=== PATIENT | female | born 1955 | race Caucasian/White ===

== ENCOUNTER 2017-04-22 21:30 | Emergency (ER) | payer BC, MEDICARE, OTHER ==
[~2017-04-22] VITALS: Ht 165.1 cm; Wt 75.1 kg
[2017-04-22 23:13] VITALS: BP 114/67
[2017-04-23] MEDS ORDERED: ENOXAPARIN 40 MG/0.4 ML ONE (00:22)
[2017-04-23] MEDS ORDERED: ENOXAPARIN 40 MG/0.4 ML SQ SCH (00:30)
== END 2017-04-23 00:30 | disposition home or self-care (01) ==
LOC: ED 23:59
DX: I80.9 Phlebitis and thrombophlebitis of unspecified site (principal); Z88.5 Allergy status to narcotic agent
CPT/HCPCS: 36415; 85610; 93971; 96372; 99285; J1650

== ENCOUNTER 2017-04-28 07:21 | Inpatient (IN) | payer MEDICARE ==
[~2017-04-28] VITALS: Ht 165.1 cm; Wt 73.0 kg
[2017-04-28] MEDS ORDERED: MYCO500T3 PO (07:47)
[2017-04-28] MEDS ORDERED: CEVI30CA4 PO (07:47)
[2017-04-28] MEDS ORDERED: PROM25TA10 PO (07:47)
[2017-04-28] MEDS ORDERED: WARF7.5T6 PO (07:47)
[2017-04-28] MEDS ORDERED: LIFI1DRO PO (07:47)
[2017-04-28] MEDS ORDERED: SODIUM CHLORIDE FLUSH 10ML SYR IVF ONE (08:00)
[2017-04-28] MEDS ORDERED: SODIUM CHLORIDE 0.9% 1,000ML IVBOLUS ONE (08:00)
[2017-04-28] MEDS ORDERED: ONDANSETRON 2MG/ML, 2ML IVPush ONE (08:00)
[2017-04-28] MEDS ORDERED: FAMOTIDINE 20 MG/2 ML IVP ONE (08:00)
[2017-04-28] MEDS ORDERED: ONDANSETRON 2MG/ML, 2ML ONE ×2 (08:01→13:17)
[2017-04-28] MEDS ORDERED: FAMOTIDINE 20 MG/2 ML ONE (08:01)
[2017-04-28] MEDS ORDERED: MORPHINE SULFATE 4 MG/ML, 1ML ONE ×2 (08:01→13:10)
[2017-04-28 08:05] LABS: HEMATOCRIT 43.5 % (34.6-47.8); HEMOGLOBIN 14.1 g/dL (11.7-16.4); WHITE BLOOD COUNT 8.8 x10^3/uL (3.4-10)
[2017-04-28] MEDS: MORPHINE SULFATE 4 MG/ML, 1ML IVPush PRN ×2 (08:05→13:13)
[2017-04-28 08:16] LABS: ASPARTATE AMINO TRANSFERASE 28 U/L (15-37); BLOOD UREA NITROGEN 9 mg/dL (7-18)
[2017-04-28] MEDS ORDERED: OMNIPAQUE 350 MG/ML, 100ML BOTTLE ONE (08:44)
[2017-04-28] MEDS ORDERED: POLYETHYLENE GLYCOL 17 GM PACKET PO PRN (11:30)
[2017-04-28] MEDS ORDERED: BISACODYL 10 MG SUPP PR PRN (11:30)
[2017-04-28] MEDS ORDERED: METOCLOPRAMIDE 5 MG/ML, 2ML IVPush PRN (11:30)
[2017-04-28] MEDS ORDERED: ONDANSETRON ODT 4 MG PO PRN (11:30)
[2017-04-28] MEDS ORDERED: LABETALOL 5MG/ML, 20ML IVPush PRN (11:30)
[2017-04-28] MEDS ORDERED: ACETAMINOPHEN 325 MG TABLET PO PRN (11:30)
[2017-04-28] MEDS ORDERED: DOCUSATE 100 MG CAPSULE PO PRN (11:30)
[2017-04-28] MEDS ORDERED: NS + 40MEQ KCL 0 ML IV ONE (12:06)
[2017-04-28] MEDS: ONDANSETRON 2MG/ML, 2ML IVPush PRN ×2 (13:18→20:40)
[2017-04-28] MEDS: POTASSIUM CHLORIDE 40 MEQ in SODIUM CHLORIDE 0.45% 1,000 ML IV SCH ×2 (13:49→22:21)
[2017-04-28] MEDS: TEMPLATE NON-FORMULARY MED. (Cevimeline Hcl 30 MG) PO SCH ×2 (16:00→21:00)
[2017-04-28] MEDS ORDERED: WARFARIN 3 MG TABLET PO-COUM ONE (17:30)
[2017-04-28 18:13] VITALS: BP 107/72
[2017-04-28] MEDS ORDERED: [UNRECOGNIZED DRUG - CODE] IV (18:36)
[2017-04-28] MEDS ORDERED: HYDR4TAB48 PO (18:36)
[2017-04-28] MEDS ORDERED: OMEP40CA6 PO (18:36)
[2017-04-28 19:16] VITALS: BP 106/69
[2017-04-29] MEDS: MORPHINE SULFATE 4 MG/ML, 1ML IVPush PRN ×3 (01:49→12:24)
[2017-04-29 01:52] VITALS: BP 103/68
[2017-04-29 05:15] LABS: HEMATOCRIT 38.5 % (34.6-47.8); HEMOGLOBIN 12.2 g/dL (11.7-16.4); WHITE BLOOD COUNT 8.1 x10^3/uL (3.4-10)
[2017-04-29 05:21] LABS: ASPARTATE AMINO TRANSFERASE 24 U/L (15-37); BLOOD UREA NITROGEN 8 mg/dL (7-18)
[2017-04-29] MEDS: ONDANSETRON 2MG/ML, 2ML IVPush PRN (06:48)
[2017-04-29 07:26] VITALS: BP 106/62
[2017-04-29] MEDS: TEMPLATE NON-FORMULARY MED. (Cevimeline Hcl 30 MG) PO SCH ×3 (08:21→20:10)
[2017-04-29] MEDS: LIFITEGRAST PO SCH (08:21)
[2017-04-29] MEDS ORDERED: HOLD COUMADIN MC PRN (08:30)
[2017-04-29] MEDS: POTASSIUM CHLORIDE 40 MEQ in SODIUM CHLORIDE 0.45% 1,000 ML IV SCH ×2 (08:43→20:10)
[2017-04-29 12:30] VITALS: BP 121/72
[2017-04-29] MEDS: HYDROmorphone 4MG TABLET PO SCH ×3 (12:30→20:10)
[2017-04-29] MEDS: OMEPRAZOLE 20 MG CAPSULE.DR PO SCH (12:30)
[2017-04-29 19:56] VITALS: BP 110/69
[2017-04-30] MEDS: MORPHINE SULFATE 4 MG/ML, 1ML IVPush PRN (00:01)
[2017-04-30 07:25] VITALS: BP 116/72
[2017-04-30 08:19] LABS: BLOOD UREA NITROGEN 6 mg/dL (7-18)
[2017-04-30] MEDS: LIFITEGRAST PO SCH (09:00)
[2017-04-30] MEDS: HYDROmorphone 4MG TABLET PO SCH ×2 (09:00→16:00)
[2017-04-30] MEDS: TEMPLATE NON-FORMULARY MED. (Cevimeline Hcl 30 MG) PO SCH ×2 (09:00→16:00)
[2017-04-30] MEDS: OMEPRAZOLE 20 MG CAPSULE.DR PO SCH (09:58)
[2017-04-30] MEDS: POTASSIUM CHLORIDE 40 MEQ in SODIUM CHLORIDE 0.45% 1,000 ML IV SCH (12:25)
[2017-04-30] MEDS ORDERED: LACT20SO13 PO (12:54)
[2017-04-30 14:50] VITALS: BP 103/70
== END 2017-04-30 18:32 | disposition home or self-care (01) | DRG 389 ==
LOC: ED 08:36 → EDIP 09:43 → 3NE 17:00
PROVIDERS: ADMIT Hospitalist; ATTEND Hospitalist
DX: K56.7 Ileus, unspecified (principal); D68.59 Other primary thrombophilia; J84.9 Interstitial pulmonary disease, unspecified; E44.1 Mild protein-calorie malnutrition; I82.492 Acute embolism and thrombosis of other specified deep vein of left lower extremity; E87.6 Hypokalemia; I73.00 Raynaud's syndrome without gangrene; Z68.26 Body mass index [BMI] 26.0-26.9, adult; Z88.5 Allergy status to narcotic agent; Z79.01 Long term (current) use of anticoagulants; Z86.72 Personal history of thrombophlebitis; Z87.891 Personal history of nicotine dependence
CPT/HCPCS: 36415; 74000; 74177; 80048; 80053; 81003; 82040; 83690; 83735; 84100; 85025; 85610; 93005; 96361; 96374; 96375; 96376; J2405; J3480; Q9967; J2765; J7030; J7517; S0028

== ENCOUNTER 2017-05-05 10:28 | Inpatient (IN) | payer MEDICARE ==
[~2017-05-05] VITALS: Ht 165.1 cm; Wt 74.8 kg
[~2017-05-05 10:28] MED LIST: CEVI30CA4 PO; HYDR4TAB48 PO; LACT20SO13 PO; LIFI1DRO PO; MYCO500T3 PO; OMEP40CA6 PO; PROM25TA10 PO; WARF7.5T6 PO; [UNRECOGNIZED DRUG - CODE] IV
[2017-05-05] MEDS ORDERED: DIPHENHYDRAMINE 50 MG/ML, 1ML IVPush ONE (11:30)
[2017-05-05] MEDS ORDERED: METOCLOPRAMIDE 5 MG/ML, 2ML IVPush ONE (11:30)
[2017-05-05] MEDS ORDERED: SODIUM CHLORIDE 0.9% 1,000ML IVBOLUS ONE (11:30)
[2017-05-05] MEDS ORDERED: SODIUM CHLORIDE FLUSH 10ML SYR IVF ONE ×2 (11:30)
[2017-05-05 11:38] LABS: HEMATOCRIT 42.9 % (34.6-47.8); WHITE BLOOD COUNT 8.5 x10^3/uL (3.4-10)
[2017-05-05 11:43] LABS: ASPARTATE AMINO TRANSFERASE 34 U/L (15-37); BLOOD UREA NITROGEN 14 mg/dL (7-18)
[2017-05-05 11:47] LABS: PATH.CAST-FLAG NOT PRESENT; SPERM-FLAG NOT PRESENT; SRC-FLAG NOT PRESENT; XTAL-FLAG NOT PRESENT; YLC-FLAG NOT PRESENT
[2017-05-05 11:57] LABS: IS PT STATUS REG ER OR PRE ER? YES
[2017-05-05] MEDS ORDERED: METOCLOPRAMIDE 5 MG/ML, 2ML ONE (12:08)
[2017-05-05] MEDS ORDERED: DIPHENHYDRAMINE 50 MG/ML, 1ML ONE (12:08)
[2017-05-05] MEDS ORDERED: ACETAMINOPHEN 500 MG TABLET ONE (12:53)
[2017-05-05] MEDS: ACETAMINOPHEN 325 MG TABLET PO PRN (12:59)
[2017-05-05] MEDS ORDERED: WARFARIN 7.5 MG TABLET PO-COUM SCH (13:00)
[2017-05-05] MEDS ORDERED: ONDANSETRON 2MG/ML, 2ML IVPush PRN (13:00)
[2017-05-05] MEDS ORDERED: PROMETHAZINE 25MG TABLET PO PRN (13:00)
[2017-05-05] MEDS ORDERED: DOCUSATE 100 MG CAPSULE PO PRN (13:00)
[2017-05-05] MEDS ORDERED: CEFTRIAXONE PMX 1GM/50ML 50 ML IV SCH (13:00)
[2017-05-05] MEDS ORDERED: LACTULOSE 20 GM/30 ML UDC PO PRN (13:00)
[2017-05-05 14:30] VITALS: BP 100/58
[2017-05-05] MEDS: SODIUM CHLORIDE 0.9% 1,000 ML IV SCH ×2 (14:30→23:00)
[2017-05-05] MEDS: HYDROmorphone 4MG TABLET PO SCH ×2 (16:36→21:52)
[2017-05-05 18:47] VITALS: BP 102/63
[2017-05-05] MEDS: FAMOTIDINE 20 MG/2 ML IVPush SCH (21:51)
[2017-05-06 00:23] VITALS: BP 122/70
[2017-05-06] MEDS: ACETAMINOPHEN 325 MG TABLET PO PRN (00:24)
[2017-05-06 05:29] LABS: ASPARTATE AMINO TRANSFERASE 32 U/L (15-37); BLOOD UREA NITROGEN 14 mg/dL (7-18)
[2017-05-06 05:43] LABS: HEMATOCRIT 39.8 % (34.6-47.8); HEMOGLOBIN 12.9 g/dL (11.7-16.4); WHITE BLOOD COUNT 6.3 x10^3/uL (3.4-10)
[2017-05-06 06:33] LABS: DIFF TOTAL CELLS COUNTED 100 CELL DIFF
[2017-05-06 06:35] LABS: ANISOCYTOSIS 1+; POIKILOCYTOSIS 1+; VERIFY COUNTS? YES
[2017-05-06 06:36] LABS: OVALOCYTES 1+
[2017-05-06 07:43] VITALS: BP 115/62
[2017-05-06] MEDS: FAMOTIDINE 20 MG/2 ML IVPush SCH ×2 (08:44→20:40)
[2017-05-06] MEDS: HYDROmorphone 4MG TABLET PO SCH ×3 (08:46→20:41)
[2017-05-06] MEDS: SODIUM CHLORIDE 0.9% 1,000 ML IV SCH ×2 (10:19→23:02)
[2017-05-06 12:23] LABS: C-REACTIVE PROTEIN, QUANT 0.1 mg/dL (0.02-0.49)
[2017-05-06 14:55] VITALS: BP 121/75
[2017-05-06] MEDS: CEFTRIAXONE PMX 1GM/50ML 50 ML IV SCH (15:58)
[2017-05-06] MEDS ORDERED: WARFARIN 2 MG TABLET PO-COUM ONE (18:00)
[2017-05-06 19:19] VITALS: BP 123/64
[2017-05-06] MEDS: DOXYCYCLINE 100MG TABLET PO SCH (20:40)
[2017-05-07 00:07] VITALS: BP 137/79
[2017-05-07] MEDS: ACETAMINOPHEN 325 MG TABLET PO PRN (00:31)
[2017-05-07 06:04] LABS: HEMATOCRIT 36.5 % (34.6-47.8); HEMOGLOBIN 12.1 g/dL (11.7-16.4); WHITE BLOOD COUNT 8.1 x10^3/uL (3.4-10)
[2017-05-07 06:19] LABS: BLOOD UREA NITROGEN 9 mg/dL (7-18)
[2017-05-07 06:20] LABS: ASPARTATE AMINO TRANSFERASE 31 U/L (15-37)
[2017-05-07 06:40] VITALS: BP 121/71
[2017-05-07] MEDS ORDERED: POTASSIUM CHLORIDE 20 MEQ TAB.ER.PRT PO ONE (09:00)
[2017-05-07] MEDS: HYDROmorphone 4MG TABLET PO SCH ×3 (09:00→21:33)
[2017-05-07] MEDS ORDERED: OMNIPAQUE 350 MG/ML, 75ML BOTTLE ONE (09:29)
[2017-05-07] MEDS: DOXYCYCLINE 100MG TABLET PO SCH ×2 (09:48→21:34)
[2017-05-07] MEDS: FAMOTIDINE 20 MG/2 ML IVPush SCH ×2 (09:48→21:33)
[2017-05-07 12:54] VITALS: BP 123/71
[2017-05-07] MEDS: CEFTRIAXONE PMX 1GM/50ML 50 ML IV SCH (16:28)
[2017-05-07] MEDS: SODIUM CHLORIDE 0.9% 1,000 ML IV SCH (16:29)
[2017-05-07] MEDS ORDERED: WARFARIN 1 MG TABLET PO-COUM ONE (18:00)
[2017-05-07 19:54] VITALS: BP 123/72
[2017-05-08 01:06] VITALS: BP 138/83
[2017-05-08] MEDS: SODIUM CHLORIDE 0.9% 1,000 ML IV SCH ×2 (05:30→22:00)
[2017-05-08 05:43] LABS: HEMATOCRIT 36.8 % (34.6-47.8); HEMOGLOBIN 12.1 g/dL (11.7-16.4); WHITE BLOOD COUNT 13.1 x10^3/uL (3.4-10)
[2017-05-08 06:18] LABS: ASPARTATE AMINO TRANSFERASE 24 U/L (15-37); BLOOD UREA NITROGEN 10 mg/dL (7-18)
[2017-05-08 07:59] VITALS: BP 136/73
[2017-05-08] MEDS: HYDROmorphone 4MG TABLET PO SCH ×3 (09:00→20:29)
[2017-05-08] MEDS: DOXYCYCLINE 100MG TABLET PO SCH ×2 (10:10→20:28)
[2017-05-08] MEDS: FAMOTIDINE 20 MG/2 ML IVPush SCH ×2 (10:10→20:28)
[2017-05-08] MEDS ORDERED: LIDOCAINE 1%, 20ML ONE (10:56)
[2017-05-08] MEDS: AMPICILLIN/SULBACTAM 3 GM in SODIUM CHLORIDE 0.9% 100 ML IV SCH ×2 (11:30→20:28)
[2017-05-08] MEDS ORDERED: GADOBUTROL 7.5 MMOL/7.5 ML PFS ONE (12:06)
[2017-05-08 13:09] VITALS: BP 131/72
[2017-05-08] MEDS ORDERED: WARFARIN 1 MG TABLET PO-COUM SCH (18:00)
[2017-05-08 18:56] VITALS: BP 131/70
[2017-05-09] VITALS (14 sets, daily range): BP systolic 130–170; BP diastolic 64–73
[2017-05-09] MEDS: AMPICILLIN/SULBACTAM 3 GM in SODIUM CHLORIDE 0.9% 100 ML IV SCH ×4 (02:13→20:53)
[2017-05-09 05:05] LABS: HEMATOCRIT 37.1 % (34.6-47.8); HEMOGLOBIN 12.3 g/dL (11.7-16.4); WHITE BLOOD COUNT 15.6 x10^3/uL (3.4-10)
[2017-05-09 05:14] LABS: BLOOD UREA NITROGEN 6 mg/dL (7-18)
[2017-05-09 05:18] LABS: ASPARTATE AMINO TRANSFERASE 20 U/L (15-37)
[2017-05-09] MEDS ORDERED: POTASSIUM CHLORIDE 20 MEQ TAB.ER.PRT PO ONE (08:00)
[2017-05-09 08:42] LABS: FERRITIN 375.2 ng/mL (8-252)
[2017-05-09] MEDS: HYDROmorphone 4MG TABLET PO SCH (09:00)
[2017-05-09] MEDS: DOXYCYCLINE 100MG TABLET PO SCH ×2 (09:33→22:10)
[2017-05-09] MEDS: FAMOTIDINE 20 MG/2 ML IVPush SCH ×2 (09:34→20:53)
[2017-05-09] MEDS: SODIUM CHLORIDE 0.9% 1,000 ML IV SCH (11:20)
[2017-05-09] MEDS ORDERED: D5%-0.9% NACL+KCL 20MEQ 1,000 ML IV SCH (12:30)
[2017-05-09] MEDS ORDERED: OMNIPAQUE 350 MG/ML, 100ML BOTTLE ONE (15:05)
[2017-05-09] MEDS ORDERED: HYDROmorphone 4MG TABLET PO PRN (16:00)
[2017-05-09] MEDS ORDERED: methylPREDNISolone SOD SUCC 125 MG/2 ML IVPush ONE (17:30)
[2017-05-09] MEDS ORDERED: ALBUTEROL/IPRATROPIUM 2.5MG/0.5MG, 3 ML ONE (17:49)
[2017-05-09] MEDS ORDERED: WARFARIN 1 MG TABLET PO-COUM SCH (18:00)
[2017-05-09 20:58] LABS: ABG COLLECTION SITE LEFT RADIAL; COLLATERAL CIRCULATION TESTING NORMAL
[2017-05-09] MEDS ORDERED: HYDROmorphone 1 MG/ML, 1ML IV PRN (22:30)
[2017-05-10] VITALS (10 sets, daily range): BP systolic 150–167; BP diastolic 63–87
[2017-05-10] MEDS: AMPICILLIN/SULBACTAM 3 GM in SODIUM CHLORIDE 0.9% 100 ML IV SCH ×4 (02:41→22:43)
[2017-05-10 06:13] LABS: HEMATOCRIT 38.8 % (34.6-47.8); HEMOGLOBIN 12.9 g/dL (11.7-16.4); WHITE BLOOD COUNT 13.4 x10^3/uL (3.4-10)
[2017-05-10 06:26] LABS: ASPARTATE AMINO TRANSFERASE 20 U/L (15-37); BLOOD UREA NITROGEN 5 mg/dL (7-18)
[2017-05-10] MEDS: FAMOTIDINE 20 MG/2 ML IVPush SCH ×2 (10:19→21:14)
[2017-05-10] MEDS: DOXYCYCLINE 100MG TABLET PO SCH ×2 (10:21→21:00)
[2017-05-10] MEDS ORDERED: D5%-0.9% NACL+KCL 20MEQ 1,000 ML IV SCH (12:30)
[2017-05-10] MEDS ORDERED: PHYTONADIONE 10 MG/ML, 1ML IM ONE (13:00)
[2017-05-10] MEDS ORDERED: PVN PER PHARMACY MC PRN (17:00)
[2017-05-10] MEDS ORDERED: ARTIFICIAL TEARS OPHTH SOLN 15ML EACHEYE PRN (17:00)
[2017-05-10] MEDS ORDERED: POTASSIUM CHLORIDE 40 MEQ in SODIUM CHLORIDE 0.9% 500 ML IV ONE (18:00)
[2017-05-11] VITALS (8 sets, daily range): BP systolic 114–176; BP diastolic 73–88
[2017-05-11 02:25] LABS: HEMATOCRIT 41.4 % (34.6-47.8); HEMOGLOBIN 13.4 g/dL (11.7-16.4); WHITE BLOOD COUNT 12.5 x10^3/uL (3.4-10)
[2017-05-11] MEDS: DOXYCYCLINE 100 MG in DEXTROSE 5% 250 ML IV SCH ×2 (02:31→14:23)
[2017-05-11 02:36] LABS: ASPARTATE AMINO TRANSFERASE 17 U/L (15-37); BLOOD UREA NITROGEN 7 mg/dL (7-18)
[2017-05-11] MEDS: AMPICILLIN/SULBACTAM 3 GM in SODIUM CHLORIDE 0.9% 100 ML IV SCH ×4 (05:12→23:03)
[2017-05-11] MEDS ORDERED: LIDOCAINE 1%, 20ML ONE (08:48)
[2017-05-11] MEDS: FAMOTIDINE 20 MG/2 ML IVPush SCH (08:49)
[2017-05-11] MEDS ORDERED: POTASSIUM PHOSPHATE 44 MEQ in SODIUM CHLORIDE 0.9% 500 ML IV ONE (09:00)
[2017-05-11] MEDS ORDERED: POTASSIUM PHOS 4.4 MEQ/ML IV ONE (09:00)
[2017-05-11] MEDS ORDERED: D5%-0.9% NACL+KCL 20MEQ 1,000 ML IV SCH (10:39)
[2017-05-11 11:32] LABS: GLUCOSE, CSF 56 mg/dL (40-80)
[2017-05-11] MEDS ORDERED: DEXTROSE 10% 500 ML IV PRN (17:00)
[2017-05-11] MEDS ORDERED: DEXTROSE 70% IV SCH ×2 (17:00)
[2017-05-11] MEDS ORDERED: DEXTROSE 50%, 50ML SYRINGE IVPush PRN (17:00)
[2017-05-11] MEDS ORDERED: AMINO ACID 10% IV SCH ×2 (17:00)
[2017-05-11] MEDS ORDERED: [UNRECOGNIZED DRUG - OTHER] IV SCH (17:00)
[2017-05-11] MEDS ORDERED: [UNRECOGNIZED DRUG - OTHER] IV SCH (17:00)
[2017-05-11] MEDS ORDERED: FAT EMULSIONS IV SCH ×2 (17:00)
[2017-05-11] MEDS ORDERED: PVN PER PHARMACY MC PRN (17:00)
[2017-05-11] MEDS: FILTER, DISP 1.2 MICRON FOR TPN/PVN IV PRN (17:33)
[2017-05-12] MEDS: INSULIN REGULAR LOW DOSE Q6H X 48HRS SQ-INSULIN SCH ×5 (00:09→23:00)
[2017-05-12] MEDS: DOXYCYCLINE 100 MG in DEXTROSE 5% 250 ML IV SCH ×2 (02:48→14:57)
[2017-05-12 02:50] VITALS: BP 165/87
[2017-05-12] MEDS: AMPICILLIN/SULBACTAM 3 GM in SODIUM CHLORIDE 0.9% 100 ML IV SCH ×3 (04:59→17:13)
[2017-05-12 05:14] LABS: BLOOD UREA NITROGEN 10 mg/dL (7-18)
[2017-05-12 05:21] LABS: HEMATOCRIT 40.2 % (34.6-47.8); HEMOGLOBIN 13.2 g/dL (11.7-16.4); WHITE BLOOD COUNT 10.7 x10^3/uL (3.4-10)
[2017-05-12 07:18] VITALS: BP 158/76
[2017-05-12 11:06] LABS: SPECIMEN SOURCE Urine (.); STREPTOCOCCUS PNEUMONIAE AG Negative (Negative)
[2017-05-12] MEDS ORDERED: GADOBUTROL 7.5 MMOL/7.5 ML PFS ONE (14:33)
[2017-05-12 15:00] VITALS: BP 170/83
[2017-05-12] MEDS: ACYCLOVIR 700 MG in SODIUM CHLORIDE 0.9% 100 ML IV SCH (16:13)
[2017-05-12] MEDS ORDERED: DEXTROSE 70% IV SCH ×2 (17:00→18:02)
[2017-05-12] MEDS ORDERED: FAT EMULSIONS IV SCH ×2 (17:00→18:02)
[2017-05-12] MEDS ORDERED: [UNRECOGNIZED DRUG - OTHER] IV SCH ×2 (17:00→18:02)
[2017-05-12] MEDS ORDERED: AMINO ACID 10% IV SCH ×2 (17:00→18:02)
[2017-05-12] MEDS: FILTER, DISP 1.2 MICRON FOR TPN/PVN IV PRN (17:14)
[2017-05-12] MEDS ORDERED: ENALAPRILAT 1.25 MG/ML, 2ML IV PRN (19:00)
[2017-05-12 19:30] VITALS: BP 161/78
[2017-05-12] MEDS ORDERED: WARFARIN 2 MG TABLET PO-COUM SCH (19:32)
[2017-05-12] MEDS ORDERED: HEPARIN 5,000 UNITS/ML, 1ML IV ONE (20:30)
[2017-05-12] MEDS ORDERED: HEPARIN 25,000 UNITS/500ML PMX 500 ML IV PRN (20:30)
[2017-05-12 23:33] LABS: HEMATOCRIT 41.8 % (34.6-47.8); HEMOGLOBIN 13.7 g/dL (11.7-16.4); WHITE BLOOD COUNT 10.6 x10^3/uL (3.4-10)
[2017-05-13 00:17] VITALS: BP 155/76
[2017-05-13] MEDS: AMPICILLIN/SULBACTAM 3 GM in SODIUM CHLORIDE 0.9% 100 ML IV SCH ×4 (00:38→18:03)
[2017-05-13] MEDS: ACYCLOVIR 700 MG in SODIUM CHLORIDE 0.9% 100 ML IV SCH ×2 (01:56→10:02)
[2017-05-13] MEDS: DOXYCYCLINE 100 MG in DEXTROSE 5% 250 ML IV SCH ×2 (03:36→14:56)
[2017-05-13] MEDS: INSULIN REGULAR LOW DOSE Q6H X 48HRS SQ-INSULIN SCH ×3 (05:07→17:00)
[2017-05-13 06:43] LABS: BLOOD UREA NITROGEN 11 mg/dL (7-18)
[2017-05-13] MEDS ORDERED: ENALAPRILAT 1.25 MG/ML, 2ML IV PRN (07:00)
[2017-05-13 07:15] VITALS: BP 169/77
[2017-05-13] MEDS: HEPARIN 5,000 UNITS/ML, 1ML IV PRN ×2 (07:30→14:55)
[2017-05-13] MEDS ORDERED: AMINO ACID 10% IV SCH ×3 (10:00→17:00)
[2017-05-13] MEDS ORDERED: [UNRECOGNIZED DRUG - OTHER] IV SCH ×2 (10:00→17:00)
[2017-05-13] MEDS ORDERED: DEXTROSE 70% IV SCH ×3 (10:00→17:00)
[2017-05-13] MEDS ORDERED: FAT EMULSIONS IV SCH ×3 (10:00→17:00)
[2017-05-13] MEDS ORDERED: FILTER, DISP 1.2 MICRON FOR TPN/PVN IV PRN (10:00)
[2017-05-13 11:00] VITALS: BP 170/83
[2017-05-13 13:30] VITALS: BP 160/79
[2017-05-13] MEDS ORDERED: GADOBUTROL 10 MMOL/10 ML VIAL ONE (16:54)
[2017-05-13] MEDS ORDERED: [UNRECOGNIZED DRUG - OTHER] IV SCH (17:00)
[2017-05-13] MEDS ORDERED: WARFARIN 10 MG TABLET PO-COUM ONE (18:00)
[2017-05-13] MEDS ORDERED: morphine SULFATE 10 MG/ML, 1ML IVPush ONE (18:30)
[2017-05-13] MEDS: morphine SULFATE 125 MG in SODIUM CHLORIDE 0.9% 237.5 ML IV PRN ×2 (18:51→21:00)
[2017-05-14] MEDS: AMPICILLIN/SULBACTAM 3 GM in SODIUM CHLORIDE 0.9% 100 ML IV SCH ×2 (00:30→06:30)
[2017-05-14] MEDS: DOXYCYCLINE 100 MG in DEXTROSE 5% 250 ML IV SCH (03:00)
[2017-05-14] MEDS ORDERED: INSULIN REGULAR LOW DOSE QDAY SQ-INSULIN SCH (05:00)
[2017-05-14 07:55] VITALS: BP 93/68
[2017-05-14] MEDS ORDERED: morphine SULFATE 125 MG in SODIUM CHLORIDE 0.9% 237.5 ML IV PRN (08:11)
[2017-05-14] MEDS ORDERED: MORPHINE SULFATE 4 MG/ML, 1ML IVPush PRN (08:30)
[2017-05-15 11:07] LABS: WEST NILE VIRUS IGG CSF Negative (Negative); WEST NILE VIRUS IGM CSF Negative (Negative)
[2017-05-15 12:07] LABS: CRYPTOCOCCUS ANTIGEN CSF Negative (Negative); MANDATED REFLEX TO CULTURE Not Indicated (.)
[2017-05-15 14:07] LABS: BETA STREP (GROUP B) AG Negative (Negative); HAEMOPHILUS INFLUENZAE B AG Negative (Negative); NEISSERIA MENINGITIDIS AG Negative (Negative)
[2017-05-15 14:07] LABS: MYCOPHENOLIC ACID 0.4 ug/mL (1.0-3.5)
[2017-05-16 08:01] LABS: WESTNILEVIRUSIGG SEE PRINTED REPORT; WESTNILEVIRUSIGM SEE PRINTED REPORT
[2017-05-16 08:12] LABS: NGI WEST NILE VIRUS RT PCR Positive (.)
[2017-05-20 14:07] LABS: ABSOLUTE CD 4 HELPER 564 /uL (359-1519); HEMATOCRIT 40.8 % (34.0-46.6); HEMATOLOGY COMMENTS Note: (.); HEMOGLOBIN 12.9 g/dL (11.1-15.9); IMMATURE GRANULOCYTES 0 % (.); MCH 27.6 pg (26.6-33.0); MCHC 31.6 g/dL (31.5-35.7); MCV 87 fL (79-97); MONOCYTES 8 % (.); NEUTROPHILS 83 % (.); NEUTROPHILS (ABSOLUTE) 8.5 x10E3/uL (1.4-7.0); PLATELETS 351 x10E3/uL (150-379); RBC 4.68 x10E6/uL (3.77-5.28); RDW 15.7 % (12.3-15.4); WBC 10.3 x10E3/uL (3.4-10.8)
== END 2017-05-16 00:02 | disposition expired | DRG 177 ==
LOC: ED 12:16 → EDIP 12:22 → SUATTDRO 12:35 → 3NE 13:10
PROVIDERS: ADMIT Hospitalist; ATTEND Family Medicine
PROC: 30233L1 Transfusion of Nonautologous Fresh Plasma into Peripheral Vein, Percutaneous Approach (ICD-10-PCS; principal; 2017-05-09)
PROC: 009U3ZX Drainage of Spinal Canal, Percutaneous Approach, Diagnostic (ICD-10-PCS; 2017-05-11)
PROC: B01B1ZZ Fluoroscopy of Spinal Cord using Low Osmolar Contrast (ICD-10-PCS; 2017-05-11)
DX: J69.0 Pneumonitis due to inhalation of food and vomit (principal); A92.31 West Nile virus infection with encephalitis; E43 Unspecified severe protein-calorie malnutrition; G93.40 Encephalopathy, unspecified; I67.83 Posterior reversible encephalopathy syndrome; I82.409 Acute embolism and thrombosis of unspecified deep veins of unspecified lower extremity; D68.59 Other primary thrombophilia; M33.90 Dermatopolymyositis, unspecified, organ involvement unspecified; M32.9 Systemic lupus erythematosus, unspecified; K56.0 Paralytic ileus; E87.1 Hypo-osmolality and hyponatremia; B36.9 Superficial mycosis, unspecified; G89.29 Other chronic pain; I73.00 Raynaud's syndrome without gangrene; M06.4 Inflammatory polyarthropathy; M35.00 Sjogren syndrome, unspecified; R13.10 Dysphagia, unspecified; W57.XXXA Bitten or stung by nonvenomous insect and other nonvenomous arthropods, initial encounter; M06.9 Rheumatoid arthritis, unspecified; Z51.5 Encounter for palliative care; Z66 Do not resuscitate; Z79.01 Long term (current) use of anticoagulants; Z80.9 Family history of malignant neoplasm, unspecified; Z82.49 Family history of ischemic heart disease and other diseases of the circulatory system; Z86.718 Personal history of other venous thrombosis and embolism; Z86.72 Personal history of thrombophlebitis; Z87.891 Personal history of nicotine dependence; Z90.710 Acquired absence of both cervix and uterus; Z90.721 Acquired absence of ovaries, unilateral
CPT/HCPCS: 36415; 36600; 62270; 70544; 70546; 70553; 71010; 71260; 74022; 74177; 80048; 80053; 80180; 81001; 82140; 82550; 82607; 82728; 82746; 82803; 82945; 82962; 83540; 83550; 83735; 84100; 84134; 84145; 84157; 84439; 84443; 84478; 84484; 85025; 85520; 85610; 85651; 85730; 86140; 86361; 86788; 86789; 86850; 86900; 87040; 87070; 87081; 87086; 87205; 87498; 87529; 87532; 87798; 87802; 87880; 87899; 89051; 93005; 95819; 96361; 96374; 96375; A9585; J0133; J0295; J0610; J0696; J1644; J1815; J2930; J3430; J3475; J3480; J3490; J7060; Q0169; Q9967; J1200; J1720; J2270; J2765; J3420; J7030; J7040; J7050; J7517; P9017; S0028